=== PATIENT | male | born 1995 | race Caucasian/White ===

== ENCOUNTER 2024-05-13 11:27 | Emergency (ER) | payer OTHER, SELFPAY ==
[2024-05-13 11:40] VITALS: BP 140/84; PULSE 69; RESP 16; TEMP 37.1; O2SAT 98
--- NOTE | 2024-05-13 11:57 | ED.UPPEXIN ---
HPI - Extremity Injury (Upper) General Chief Complaint: Extremity Injury, Upper Stated Complaint: left elbow pain Source: patient Mode of arrival: ambulatory Limitations: no limitations History of Present Illness HPI narrative: 28-year-old male presented for complaint of left elbow pain for 5 days. Denies specific injury but states uses his arms frequently at work. Endorses pain is with movement, Rates pain 4/10. Reports normal range of motion, denies swelling, redness, warmth, numbness, tingling, or weakness. Not taking anything for pain. Related Data Allergies Allergy/AdvReac Type Severity Reaction Status Date / Time No Known Allergies Allergy Verified 05/13/24 11:46 Review of Systems Review of Systems: CONSTITUTIONAL: Denies body aches, fever, chills CARDIOVASCULAR: Denies chest pain, palpitations, or edema. RESPIRATORY: Denies cough or dyspnea. SKIN: Denies rash, itching, or wounds. MUSCULOSKELETAL: Reports left elbow pain NEUROLOGIC: Denies numbness, tingling, or weakness. All systems reviewed & are unremarkable except as noted in HPI and below PMFSH Comments At time of signature, I have reviewed and agree with nursing past medical, surgical, social and family history unless otherwise noted. Please see nursing chart for further information. There is no relevant family history pertinent to the presenting complaint Exam Narrative: GENERAL: Well-appearing CHEST: Speaks in full sentences. No respiratory distress. HEART: Regular rate and rhythm. Normal and equal peripheral pulses. EXTREMITIES: LUE has normal strength and sensation, normal range of motion at elbow, but endorses pain with movement. No edema, erythema, warmth, or ecchymosis, No point tenderness. No open wounds, or obvious deformity; alignment normal, pulse palpable and equal bilaterally, skin warm, dry, pink. Market Research Analyst strength strong and equal bilaterally. Capillary refill less than 3 seconds. SKIN: Warm, dry, no rash. NEURO: Alert and oriented x3. PSYCH: Normal mood and affect Course Course Emergency Course: Patient is aware of diagnosis, understands and agrees to treatment plan. Anticipatory guidance given. Patient agrees to follow-up as directed and is aware of reasons to seek care at the emergency department. Portions of this record may have been created with voice recognition software Level of Care: Express Care Visit Vital Signs Vital signs: Vital Signs Temperature 98.7 F 05/13/24 11:40 Pulse Rate 69 05/13/24 11:40 Respiratory Rate 16 05/13/24 11:40 Blood Pressure 140/84 05/13/24 11:40 Pulse Oximetry 98 05/13/24 11:40 Oxygen Delivery Room Air 05/13/24 11:40 Temperature 98.7 F 05/13/24 11:40 Pulse Rate 69 05/13/24 11:40 Respiratory Rate 16 05/13/24 11:40 Blood Pressure 140/84 05/13/24 11:40 Pulse Oximetry 98 05/13/24 11:40 Oxygen Delivery Room Air 05/13/24 11:40 Reviewed MDM - Extremity Injury (Upper) MDM Narrative Medical decision making narrative: Patient's injury and pain appear to be of musculoskeletal nature, likely tendonitis; No concerns for compartment syndrome. No concern for tendon or nerve injury. Discussed physical exam findings. Advised supportive measures and signs/symptoms to go to the ER. Pt is appropriate for outpt treatment and f/u. Differential Diagnosis Differential diagnosis: Likely other (osteoarthritis, elbow dislocation, septic bursitis, epicondylitis, biceps tendon rupture, tendonitis, fracture) Discharge Plan Discharge Clinical Impression: Elbow pain, left Patient Disposition: Home, Self-Care Condition: Stable Instructions: Antibiotic Form, Tendinitis (ED) Additional Instructions: Rest. Avoid pushing, pulling, lifting or anything that worsens the symptoms Tylenol 1000mg every 8 hours as needed Take the steroid as directed Alternate ice/heat to the site. Lidocaine or salon pas pain patch or use pain cream like icy/hot or biofreeze. Follow up with your primary care provider as needed in 1 week Go to the ER for worsening symptoms or concerns Patient Language: Vietnamese Prescriptions: New prednisone 50 mg tablet 50 mg PO DAILY Qty: 5 0RF Follow-up/Referrals: Melvin Velasquez MD [Primary Care Provider] - Stand Alone Forms: Work/School Release IP Time of Disposition: 12:06
--- OUTSIDE RECORDS SUMMARY | 2024-05-13 13:02 | XMS_ITS | Clinical Summary ---
Author Organization [facility] Address [address] [place] [id number] Care Team Providers Care Transfer Coordinator Name Role Phone Melvin Velasquez MD Primary Care Provider [phone] Allergies No known active allergies Medications benzonatate (TESSALON) 100 mg capsuleIndicati ons:Cough Take 1 capsule (100 mg total) by mouth 3 (three) times a day as needed for cough 42 capsule 11/06/2023 Active Active Problems Problem Noted Date Diagnosed Date Fracture of orbit 11/19/2013 Surgical History Surgery Date Site/Laterality Comments TYMPANOSTOMY TUBE PLACEMENT Ear Pressure Equalization Tube, Insertion, Bilaterally - at OSH as infant (Added by TW Conv) NE TONSILLECTOMY PRIMARY/SECONDARY <AGE 14 Tonsillectomy - with Adenoidectomy at OSH at age 5 (Added by TW Conv) NO PAST SURGERIES Medical History Medical History Date Comments ADHD (attention deficit hyperactivity disorder) Family History Medical History Relation Name Comments Arthritis Mother Relation Name Status Comments Mother Social History Tobacco Use Types Packs/Day Years Used Date Smoking Tobacco: Never Personal Safety Answer Date Recorded Getting School Help Needed Not on file 04/26 Sex and Gender Information Value Date Recorded Sex Assigned at Not on file 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 Gender Identity Not on file Sexual Orientation Not on file Obstetrics History Last Filed Vital Signs Vital Sign Reading Time Taken Comments Blood Pressure 114/68 11/06/2023 4:41 PM CDT Pulse 84 11/06/2023 4:41 PM CDT Temperature 37.5 C (99.5 F) 11/06/2023 4:41 PM CDT Respiratory Rate 18 11/06/2023 4:41 PM CDT Oxygen Saturation 99% 11/06/2023 4:41 PM CDT Inhaled Oxygen Concentration - - Weight 72.6 kg (160 lb) 11/06/2023 4:41 PM CDT Height 188 cm (6' 2 ) 11/06/2023 4:41 PM CDT Body Mass Index 20.54 11/06/2023 4:41 PM CDT Plan of Treatment Health Maintenance Due Date Last Done Comments Depression Screening 1997 Hepatitis C Screening 1997 Regular Well Visit/Exam 18-64 10/13/2015 DTaP/Tdap/Td Vaccine (7 - Td or Tdap) 09/07/2018 09/07/2008, 08/06/2002, 02/16/1999, Additional history exists Influenza Vaccine (#1) 2023 8, 12/01/2016, 12/16/2015, Additional history exists Hepatitis B Screening Completed 07/18/1998 , 1997, 1997 Varicella Vaccines Completed 04/10/2007, 12/09/1998 HPV Vaccines Completed 05/03/2012, 08/2011, 09/05/2011 Pneumococcal vaccine <65 Aged Out No longer eligible based on patient's age to complete this topic Insurance Scan[employer]Jour [employer] ACCESS CHOICE Care Teams Transfer Coordinator Relationship Specialty Start Date End Date Melvin Velasquez MD [address] [place] [address] [place] [address] PCP - General Family Medicine 08/11/20
--- OUTSIDE RECORDS SUMMARY | 2024-05-13 13:02 | XMS_ITS | Clinical Summary ---
Author Organization [facility] Address [address] [place] [address] Care Team Providers Care Tooth Grinder Name Role Phone Unavailable Primary Care Provider Unavailabl e Source Comments [facility],non-owned Affiliates and Associated Physician Practices is amultiple site organization consisting of ambulatory clinics and hospital sitesin [place], [place], [place] and [place]. This disclosure is being madepursuant to the Care Everywhere program and may not contain all information available regarding this patient. Last updated 17.[facility] Allergies No known active allergies Medications * Be aware that medications may not be up to date on this document. Alwaysverify current medications with the patient. Medication Sig Dispensed Refills Start Date End Date Status Citalopram Hydrobromide (CITALOPRAM PO) Active Cetirizine HCl (ZYRTEC ALLERGY PO) Active Social History Tobacco Use Types Packs/Day Years Used Date Smoking Tobacco: Never Assessed Sex and Gender Information Value Date Recorded Sex Assigned at Not on file Gender Identity Not on file Sexual Orientation Not on file Last Filed Vital Signs Vital Sign Reading Time Taken Comments Blood Pressure 110/60 09/02/2018 11:37 AM CDT Pulse 76 09/02/2018 11:37 AM CDT Temperature 36.8 C (98.2 F) 09/02/2018 11:37 AM CDT Respiratory Rate - - Oxygen Saturation 98% 09/02/2018 11:37 AM CDT Inhaled Oxygen Concentration - - Weight 77.1 kg (170 lb) 09/02/2018 11:37 AM CDT Height 190.5 cm (6' 3 ) 09/02/2018 11:37 AM CDT Body Mass Index 21.25 09/02/2018 11:37 AM CDT Plan of Treatment Health Maintenance Due Date Last Done Comments HIV SCREENING 2012 HPV VACCINE (1 - Male 3-dose series) 2012 HEPATITIS C SCREENING 10/08/2015 DTAP/TDAP/TD VACCINES (1 - Tdap) 2016 HEPATITIS B VACCINE (1 of 3 - 19+ 3-dose series) 2016 COVID-19 VACCINE (1 - 2023-2 5 season) 2023 INFLUENZA VACCINE (#1) 2023 DEPRESSION SCREENING 02/12/2024 ZOSTER VACCINE (1 of 2) 10/13/2047 HIB VACCINE Aged Out No longer eligi ble based on patient's age to complete this topic MENINGOCOCCAL (Group B) VACC INE SHARED DECISION-MAKING Aged Out No longer eligibl e based on patient's age to complete this topic MENINGOCOCCAL GROUPS A/C/Y/W VACCINE Aged Out No longer eligible b ased on patient's age to complete this topic PNEUMOCOCCAL VACCINE Aged Out No long er eligible based on patient's age to complete this topic [address] [place] [address]
--- OUTSIDE RECORDS SUMMARY | 2024-05-13 13:02 | XMS_ITS | Data Portability ---
Author Organization [place] [facility] Main Office Address [address] [place] [address] Care Team Providers Care Director River Restoration Name Role Phone RAMIREZ JEZ Primary Care Provider [phone] JEZ RAMIREZ Referring Provider Assessment Encounter Date Assessment Date Assessment LastModified by Organization Details LastModified Time 09/18/2023 09/18/2023 27-year-old patient presents today with left shoulder pain that started about 2 months ago. Denies any initial injury. He works at [employer] and does a lot of repetitive movements throughout the day. Started to feel discomfort and a grinding sensation in the shoulder. He went to his primary care physician and was given diclofenac. He has been taking this for 2 weeks and states that the shoulder is already feeling a lot better. He went to come in today to be sure there is nothing wrong. Imaging: X-rays reviewed show no acute bony abnormality, no fracture. Preserved joint spaces throughout. Physical exam: No pain with palpitation around the shoulder. Range of motion 150/40/upper lumbar. 5/5 rotator cuff strength. Negative Todd, Neer, Archibald. Sensation intact throughout. We recommend he continue taking the diclofenac as it is working for him. We will provide him with a shoulder exercise handout to work on at home. We discussed that if he has not feeling better in 4 weeks or so that he can return and we can try a cortisone injection at that time. He is in agreement with this plan. [email or web address] Not available 09/18/2023 15:33:55 Plan of Treatment Reminders Order Date Submit Date Provider Last Modified By Organization Details Last Modified Time Details Appointments None record ed. Lab None record ed. Referral None record ed. Procedures None record ed. Surgeries None record ed. Imaging XR, should er, 2 or more view 024 09/18/19 24 [email or web address] [facility], [address], [place], [id number], 16:47:48 Medication Orders None record ed. Patient TargetsNo targets recorded. Patient InstructionsNo instructions recorded. Reason for Referral None Reported. Results Created Date Observation Date Name Description Value Unit Range Abnormal Flag Note LastModifiedBy Organization Detail LastModifiedTime 09/18/19 XR, shoul gayla, 2 or more view No observ ation record ed. [email or web address] [facility] [address], [place], [id number], 09/18/2023 15:31:12 Result Notes None recorded. Problems Name Problem SNOMED Code Status Onset Date Resolution Date Notes Provider Name and Address Organization Details Recorded Time Pain of left shoulder joint [id number] 09 Active 2023 [place] [facility] 15:13:46 Problem Notes None recorded. Procedures Surgical History None recorded. Imaging Results Imaging Date Name Status LastModified by Organiz ation Details LastModified Time 09/18/2023 XR, shoulder, 2 or more view completed [email or web address] [facility] [address], [place], [id number], 09/18/2023 15:31:12 Procedure Notes None recorded. Medical Equipment None Reported. Allergies No known drug allergies Medications Name Sig Start Date Stop Date Status Note LastModified by Organization Details LastModified Time diclofenac sodium 75 mg tablet,delay ed release TAKE 1 TABLET BY MOUTH TWICE DAILY active Not Available Not Available No t Available Vitals Date Recorded Body height Body mass index (BMI) Body weight Provider Name and Address Organization Details Last Updated DateTime 09/18/2023 190.5 cm 20 kg/m2 18928.78 g Jeanie Peguero CNA [facility] 09/18/2023 15:10:47 Social History Question Answer Notes LastModified by Organizat ion Details LastModified Time Tobacco Smoking Status Current Every Day Smoker Jeanie Hendersons, [place] null, [place] [facility] 09/18/2023 15:12:36 What Is Your Level Of Alcohol Consumption? None Information not available 09/18/2023 How Many Years Have You Smoked Tobacco? 7 Information not available 09/18/2023 Sex: Unknown Functional Status None recorded. Mental Status None recorded. Family History Relationship Description Onset Age of this Age Resolved Age Notes LastModified by Organization Details LastModified Time Unspecified Relation Diabetes mellitus multip le family member s Not available 09/18/2023 15:12:16 Notes:cancer-multiple family members Medical History No medical history recorded. Past Encounters Encounter ID Performer Location Encounter Start Date Encounter Closed Date Diagnosis/Indication Diagnosis SNOMED-CT Code Diagnosis ICD10 Code Diagnosis Note [id number] Kelsi Brasher NP [facility] [address] [place] [address] 09/18/2023 14:55:53 09/18/2023 15:30:43 Pain of left shoulder joint [id number] M25.512 Health Concerns Section Related Observation LastModified by Organization Detai ls LastModified Time None Recorded Concern Status LastModified by Organization Details LastModified Time None Recorded Advance Directives Directive None Recorded Payers Encounter Date Sequence Insurance Name Policy Number Policy Luna Covered Member ID Luna Member ID Guarantor Name 09/18/2023 1 [employer] [id number] Wilson Garces [id number] Wilson Garces
--- OUTSIDE RECORDS SUMMARY | 2024-05-13 13:02 | XMS_ITS | Referral Summary ---
Author Organization [facility] Address [address] [place] [phone] Care Team Providers Care Medicaid Billing Clerk Name Role Phone Melvin Velasquez MD Primary Care Provider [phone] Allergies No known active allergies Medications benzonatate (TESSALON) 100 mg capsuleIndicati ons:Cough Take 1 capsule (100 mg total) by mouth 3 (three) times a day as needed for cough 42 capsule 11/06/2023 Active Active Problems Problem Noted Date Diagnosed Date Fracture of orbit 11/19/2013 Social History Tobacco Use Types Packs/Day Years Used Date Smoking Tobacco: Never Personal Safety Answer Date Recorded Getting School Help Needed Not on file 04/26 Sex and Gender Information Value Date Recorded Sex Assigned at Not on file 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
== END 2024-05-13 12:12 | disposition home or self-care (01) ==
PROVIDERS: Emergency Provider Nurse Practitioner Family; PCP Emergency Medicine
DX: M25.522 Pain in left elbow (principal)
CPT/HCPCS: 99203; G0463